=== PATIENT | female | born 1955 | race Caucasian/White ===

== ENCOUNTER → 2017-10-11 | Outpatient (CLI) | payer OTHER ==
--- NOTE | 2017-10-11 12:32 | Diagnostic Imaging Report ---
PROCEDURE: Frontal and lateral views of the chest. COMPARISON: None. INDICATIONS: YEARLY PHYSICAL EXAM FINDINGS: Lines/tubes: None. Lungs: The lungs are well inflated. Right lower lobe calcified granuloma. There is no evidence of pneumonia or pulmonary edema. Pleura: There is no pleural effusion or pneumothorax. Heart and mediastinum: The heart and the mediastinum are normal. Bones: No acute bony abnormality. IMPRESSION: No acute cardiopulmonary disease. Dictated by: Javed Patricia M.D. on 10/11/2017 at 12:32 Electronically approved by: Javed Patricia M.D. on 10/11/2017 at 12:32
== END ==
LOC: RAD 11:43
PROVIDERS: ATTEND Family Medicine
DX: Z00.00 Encounter for general adult medical examination without abnormal findings (principal)
CPT/HCPCS: 71046